=== PATIENT | male | born 1980 | race Caucasian/White ===

== ENCOUNTER 2018-12-31 14:10 | Emergency (ER) | payer MEDICAID ==
[~2018-12-31] VITALS: Ht 170.2 cm; Wt 64.1 kg
[2018-12-31 14:48] VITALS: BP 117/78; PULSE 76; RESP 18; Ht 170.2 cm; Wt 64.1 kg
[2018-12-31] MEDS ORDERED: KETOROLAC 60 MG INJ IM STA (16:55)
[2018-12-31] MEDS ORDERED: DIPHENHYDRAMINE 50 MG CAP PO ONE (17:00)
[2018-12-31] MEDS ORDERED: METOCLOPRAMIDE 10 MG INJ IM ONE (17:00)
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
== END 2018-12-31 19:58 | disposition left against medical advice (07) ==
LOC: FTE 14:10
DX: R51 Headache (principal); Z87.891 Personal history of nicotine dependence
CPT/HCPCS: 87400; 96372; J1885; J2765; Z7502; Z7610